=== PATIENT | male | born 1970 | race Hispanic/Latino ===

== ENCOUNTER 2023-01-02 21:06 | Emergency (ER) | payer OTHER ==
[~2023-01-02] VITALS: Ht 157.5 cm; Wt 92.5 kg
[2023-01-02] MEDS ORDERED: ONDANSETRON ODT 4MG TAB SL ONE (22:30)
[2023-01-02] MEDS ORDERED: CEFAZOLIN SODIUM 1 GM VIAL IM SCH (22:30)
[2023-01-02] MEDS ORDERED: MORPHINE 4 MG SYG IM ONE (22:30)
[2023-01-02 23:47] LABS: BASOPHILS % (AUTO) 0.4 % (0.0-5.0); HEMATOCRIT 42.9 % (42-54); LYMPHOCYTES % (AUTO) 21.9 % (21.0-51.0); MEAN CORPUSCULAR HGB CONC 35.4 g/dL (32.0-36.0); MEAN CORPUSCULAR VOLUME 81.9 fL (79-99); MONOCYTES % (AUTO) 5.4 % (3.0-13.0); NEUTROPHILS % (AUTO) 71.9 % (40.0-77.0); PLATELET COUNT (AUTO) 191 K/uL (130-400); RED BLOOD CELL COUNT(AUTO) 5.24 MIL/uL (4.50-6.20); RED CELL DISTRIBUTION WIDTH 13.4 % (11.0-15.5); WHITE BLOOD COUNT (AUTO) 10.6 K/uL (4.8-10.8)
[2023-01-02 23:57] LABS: CREATININE 0.9 mg/dL (0.5-1.5); POTASSIUM 3.5 mmol/L (3.5-5.1)
[2023-01-02 23:59] LABS: INR 0.93 (0.85-1.15); PROTHROMBIN TIME 10.1 SEC (9.6-11.6)
[2023-01-03 00:01] LABS: PARTIAL THROMBOPLASTIN TIME 25.6 SEC (26.3-35.5)
[2023-01-03 00:04] LABS: ALBUMIN 4.2 g/dL (3.5-5.0); TOTAL PROTEIN, SERUM 7.7 g/dL (6.0-8.3)
[2023-01-03 00:14] VITALS: BP 144/81
== END 2023-01-03 02:17 | disposition short-term general hospital (02) ==
LOC: EDH 21:06
DX: S62.632B Displaced fracture of distal phalanx of right middle finger, initial encounter for open fracture (principal); Z20.822 Contact with and (suspected) exposure to COVID-19; X58.XXXA Exposure to other specified factors, initial encounter; Y93.89 Activity, other specified; Y92.89 Other specified places as the place of occurrence of the external cause; Y99.8 Other external cause status
CPT/HCPCS: 99285; 87635; 80053; 85025; 85610; 85730; 36415; 73140; 96372 ×2; C9803; J0690; J2270